=== PATIENT | female | born 2000 | race Caucasian/White ===

== ENCOUNTER 2022-11-02 09:27 | Emergency (ER) | payer OTHER ==
[2022-11-02 10:18] LABS: Hematocrit 39.1 % (34.9-44.5); Hemoglobin 13.2 g/dL (12.0-15.5); Red Blood Cell (RBC) Count 4.44 10x6/uL (3.90-5.03); White Blood Cell (WBC) Count 4.6 10x3/uL (3.5-10.5)
[2022-11-02 10:19] LABS: Mean Corpuscular HGB CONC 33.8 g/dL (32.0-36.0); Mean Corpuscular Hemoglobin 29.7 pg (27.0-33.0); Mean Corpuscular Volume 88.1 fl (81.6-98.3); Mean Platelet Volume 9.8 fl (7.4-10.4); Platelet Count 256 10x3/uL (130-400)
[2022-11-02 10:21] LABS: %Neutrophils 58.1 % (40.0-75.0)
[2022-11-02 10:22] LABS: #Eosinphils 0.2 10x3/uL (0.0-0.5); #Monocytes 0.4 10x3/uL (0.0-1.1); #Neutrophils 2.7 10x3/uL (1.5-8.4); %Basophils 0.9 % (0.0-2.0); %Eosinophils 3.9 % (0.0-6.0); %Lymphocytes 28.5 % (18.0-47.0); %Monocytes 8.4 % (0.0-10.0)
[2022-11-02 10:29] LABS: Carbon Dioxide 22 mmol/L (22-29); Chloride 108 mmol/L (98-107); Potassium 3.7 mmol/L (3.5-5.1); Sodium 141 mmol/L (136-145)
[2022-11-02 10:30] LABS: Anion Gap 15 mmol/L (10-20)
[2022-11-02 10:31] LABS: BUN (Urea Nitrogen) 10 mg/dL (7.0-18.7); Bilirubin, Total 0.8 mg/dL (0.2-1.2); Calc. Creatinine Clearance 0 mL/min (70-130); Calcium 9.5 mg/dL (7.6-10.4); Estimated GFR 101; Glucose 90 mg/dL (70-105)
[2022-11-02 10:32] LABS: ALT (SGPT) 11 U/L (8-55); AST (SGOT) 16 U/L (5-34); Albumin 4.8 g/dL (3.5-5.0); Alkaline Phosphatase 46 U/L (40-110); Globulin 2.1 g/dL (2.4-3.5); Protein, Total 6.9 g/dL (6.0-8.3)
[2022-11-02] MEDS ORDERED: Ketorolac Tromethamine 30 MG/ML VIAL ONE (11:53)
[2022-11-02 11:54] LABS: BHCG - Serum Negative (NEGATIVE); Pregs Control Background? CLEAR/WHITE (CLR/WHITE); Pregs Control Bar Appear? YES (CONTROL BAR)
[2022-11-02] MEDS ORDERED: Iopamidol 300 61% 100 ML VIAL FS ONE (15:10)
== END 2022-11-02 12:20 | disposition home or self-care (01) ==
LOC: CSHERS 09:27
DX: M62.838 Other muscle spasm (principal); V89.2XXA Person injured in unspecified motor-vehicle accident, traffic, initial encounter
CPT/HCPCS: 70450; 71045; 71260; 72125; 74177; 80053; 84703; 85025; 96374; J1885; Q9967